=== PATIENT | male | born 1950 | race Caucasian/White ===

== ENCOUNTER 2019-01-13 10:57 | Emergency (ER) | payer MEDICARE, BC ==
[~2019-01-13] VITALS: Ht 167.6 cm; Wt 101.4 kg
[2019-01-13 11:06] VITALS: BP 139/80
[2019-01-13] MEDS ORDERED: LIDOcaine 1% W/epiNEPHrine 1:200,000 10ml vial IJ ONE (11:55)
[2019-01-13] MEDS ORDERED: LIDOcaine 1% w/EPI 1:200,000 injection 10mL vial IM ONE (11:55)
== END 2019-01-13 12:45 | disposition home or self-care (01) ==
LOC: ER 10:57
DX: S61.441A Puncture wound with foreign body of right hand, initial encounter (principal); I10 Essential (primary) hypertension; X58.XXXA Exposure to other specified factors, initial encounter; Y93.89 Activity, other specified; Y92.89 Other specified places as the place of occurrence of the external cause; Y99.9 Unspecified external cause status
CPT/HCPCS: 10120; 99284

== ENCOUNTER 2019-01-18 23:28 | Inpatient (IN) | payer MEDICARE, BC ==
[~2019-01-18] VITALS: Ht 167.6 cm; Wt 100.0 kg
[2019-01-18] MEDS ORDERED: pantoprazole IV 80 MG in normal saline 100ml IV soln 100 ML IV ONE (23:35)
[2019-01-18] MEDS ORDERED: tranexamic acid 100mg/ml inj. IV ONE (23:35)
[2019-01-18] MEDS ORDERED: normal saline 1000ML IV soln IV ONE (23:35)
--- NOTE | 2019-01-18 23:51 | NUR ---
PT CLEANED UP AFTER HOME/EMS BLOODY BM AND NEW BED SHEETS WITH PADS ON BED. PT FEELING NAUSEATED - MD AWARE, PT ORIENTED TO ROOM AND CALL LIGHT, AND UPDATED ON PLAN OF CARE. FAMILY AT BEDSIDE.
[2019-01-18 23:59] LABS: BASOPHILS % (AUTO) 0.4 % (0-1); EOSINOPHILS # (AUTO) 0.2 X10'3 (0-0.9); EOSINOPHILS % (AUTO) 1.7 % (0-6); HEMATOCRIT 27.9 % (42.0-52.0); HEMOGLOBIN 9.4 g/dl (14.0-17.9); LYMPHOCYTES # (AUTO) 2.4 X10'3 (1.1-4.8); LYMPHOCYTES % (AUTO) 26.7 % (21-51); MEAN CORPUSCULAR HEMOGLOBIN 31.3 PG (27.0-31.0); MEAN CORPUSCULAR HGB CONC 33.6 g/dL (33.0-36.5); MEAN CORPUSCULAR VOLUME 93.1 FL (78-98); MEAN PLATELET VOLUME 8.2 FL (7.4-10.4); MONOCYTES # (AUTO) 0.7 X10'3 (0-0.9); MONOCYTES % (AUTO) 8.1 % (2-12); NEUTROPHILS # (AUTO) 5.6 X10'3 (1.8-7.7); NEUTROPHILS % (AUTO) 63.1 % (42-75); PLATELET COUNT 256 X10'3 (140-440); RED BLOOD COUNT 2.99 X10'6 (4.70-6.10); RED CELL DISTRIBUTION WIDTH 14.1 % (11.5-14.5); WHITE BLOOD COUNT 8.8 X10'3 (4.5-11.0)
[2019-01-19] VITALS (17 sets, daily range): BP systolic 99–147; BP diastolic 50–82
[2019-01-19] MEDS ORDERED: ondansetron/PF 4mg/2ml inj IV ONE
[2019-01-19] MEDS: pantoprazole 40MG/NS 100ML BAG 100 ML IV SCH ×5 (00:04→23:19)
[2019-01-19 00:13] LABS: PARTIAL THROMBOPLASTIN TIME 25 SECONDS (22-32)
--- NOTE | 2019-01-19 00:15 | NUR ---
PT AMBULATED [place] [facility] [place] APPROX. 300 ML OF BLOODY STOOL BM. PT REPORTED NO BOUTS OF DIZZINESS OR WEAKNESS. PT BACK IN BED WITH WARM BLANKETS REQUESTED.
[2019-01-19 00:16] LABS: ALANINE AMINOTRANSFERASE 34 U/L (12-78); ALBUMIN 2.5 G/DL (3.4-5.0); ALKALINE PHOSPHATASE 119 IU/L (46-116); ANION GAP 14 (8-16); ASPARTATE AMINO TRANSFERASE 16 U/L (10-37); BILIRUBIN,TOTAL 0.2 MG/DL (0.1-1.0); BLOOD UREA NITROGEN 50 MG/DL (7-18); BUN/CREATININE RATIO 47.6 (5.4-32.0); CALCIUM 7.1 MG/DL (8.5-10.1); CHLORIDE 109 MMOL/L (99-107); CREATININE 1.05 MG/DL (0.60-1.10); GLUCOSE 161 MG/DL (70-104); POTASSIUM 4.4 MMOL/L (3.5-5.1); SODIUM 144 MMOL/L (135-145); TOTAL CARBON DIOXIDE 21.5 MMOL/L (24-32); eGFR 71 ML/MIN
[2019-01-19] MEDS ORDERED: FINA5TAB11 PO (00:46)
[2019-01-19] MEDS ORDERED: SIMV20TA PO (00:46)
[2019-01-19] MEDS ORDERED: LISI10TA4 PO (00:46)
[2019-01-19] MEDS ORDERED: MINO10TA16 PO (00:46)
[2019-01-19] MEDS ORDERED: CHOL10002 PO (00:46)
[2019-01-19] MEDS ORDERED: SAW450CA7 PO (00:46)
[2019-01-19] MEDS ORDERED: ESCI10TA PO (00:46)
[2019-01-19] MEDS ORDERED: VENL225T3 PO (00:46)
[2019-01-19] MEDS ORDERED: ASPI-611 PO (00:46)
[2019-01-19] MEDS ORDERED: OMEG-42 PO (00:46)
[2019-01-19] MEDS ORDERED: TURM538C PO (00:46)
[2019-01-19] MEDS ORDERED: VITE1000C PO (00:46)
[2019-01-19] MEDS ORDERED: BIOT10004 PO (00:46)
[2019-01-19] MEDS ORDERED: FLO0.4C PO (00:46)
[2019-01-19] MEDS ORDERED: MULT-955 PO (00:46)
[2019-01-19] MEDS ORDERED: LORA10TA7 PO (00:46)
[2019-01-19] MEDS ORDERED: FENT1PAT10 TP (00:46)
[2019-01-19] MEDS ORDERED: META800T87 PO (00:46)
[2019-01-19] MEDS ORDERED: OMEG92TA PO (00:46)
[2019-01-19] MEDS: diatr meglu/diatrizoate 30ml oral sol.-(3 dose) bottle PO SCH ×2 (00:48→01:31)
[2019-01-19] MEDS ORDERED: normal saline 1000ML IV soln IVB ONE (01:10)
[2019-01-19] MEDS ORDERED: iohexol 300mg/ml 100ml inj. ONE (01:21)
[2019-01-19] MEDS ORDERED: potassium Cl 20 mEq SR tablet PO PRN ×2 (02:25)
[2019-01-19] MEDS ORDERED: magnesium 2GM in 50ml NS 50 ML IV PRN (02:25)
[2019-01-19] MEDS ORDERED: magnesium 4gm in 100ml NS 100 ML IV PRN (02:25)
[2019-01-19] MEDS ORDERED: acetaminophen 325mg tablet PO PRN (02:25)
[2019-01-19] MEDS ORDERED: potassium CL 10mEq/100ml bag 100 ML IV PRN ×2 (02:25)
[2019-01-19] MEDS ORDERED: magnesium Cl slow-release 64mg tablet PO PRN (02:25)
[2019-01-19] MEDS ORDERED: magnesium hydroxide 30ml (MOM) UD suspension PO PRN (02:25)
[2019-01-19] MEDS ORDERED: mag hydrox/Alum hydrox/simeth 30ml oral suspension PO PRN (02:25)
[2019-01-19] MEDS: ondansetron/PF 4mg/2ml inj IV PRN ×3 (02:41→22:30)
--- NOTE | 2019-01-19 03:12 | NUR ---
PT ASSISTED TO [facility]SC TO HAVE BM. APPROX. 500 ML BLOODY STOOL WITH SOME SLIGHTLY SOLID BLACK BM. PT STATES NO DIZZINESS BUT IS VERY COLD. WARM BLANKETS GIVEN. PT RESTING COMFORTABLY IN BED. FAMILY AT BEDSIDE
[2019-01-19] MEDS ORDERED: morphine 2 MG/ML inj. syringe IV PRN (04:55)
--- NOTE | 2019-01-19 06:40 | NUR ---
ASSISTED PT. TO [facility] [place], HAD APPROXIMATELY 500ML BLOODY STOOL. DENIED ANY DIZZINESS, SOB OR CP.
[2019-01-19 06:41] LABS: BASOPHILS % (AUTO) 0.3 % (0-1); EOSINOPHILS % (AUTO) 0 % (0-6); HEMATOCRIT 31.3 % (42.0-52.0); HEMOGLOBIN 10.5 g/dl (14.0-17.9); LYMPHOCYTES # (AUTO) 1.4 X10'3 (1.1-4.8); MEAN CORPUSCULAR HEMOGLOBIN 31.3 PG (27.0-31.0); MEAN CORPUSCULAR HGB CONC 33.6 g/dL (33.0-36.5); MEAN CORPUSCULAR VOLUME 93.1 FL (78-98); MEAN PLATELET VOLUME 8.2 FL (7.4-10.4); MONOCYTES # (AUTO) 0.5 X10'3 (0-0.9); MONOCYTES % (AUTO) 3.8 % (2-12); NEUTROPHILS % (AUTO) 84.9 % (42-75); PLATELET COUNT 214 X10'3 (140-440); RED BLOOD COUNT 3.36 X10'6 (4.70-6.10); RED CELL DISTRIBUTION WIDTH 14.4 % (11.5-14.5)
[2019-01-19 06:52] LABS: ALBUMIN 2.4 G/DL (3.4-5.0); ANION GAP 10 (8-16); BLOOD UREA NITROGEN 37 MG/DL (7-18); CALCIUM 7.5 MG/DL (8.5-10.1); CHLORIDE 112 MMOL/L (99-107); CREATININE 0.84 MG/DL (0.60-1.10); GLUCOSE 106 MG/DL (70-104); POTASSIUM 4.4 MMOL/L (3.5-5.1); SODIUM 140 MMOL/L (135-145); TOTAL CARBON DIOXIDE 17.7 MMOL/L (24-32); eGFR > 90 ML/MIN
--- NOTE | 2019-01-19 07:10 | NUR ---
PT. TEMPERATURE AT 99.6. PT. GIVEN ICE PACKS AND WET CLOTH.
[2019-01-19] MEDS: K and/or MAG REPLACEMENT MC SCH (07:58)
[2019-01-19] MEDS: tamsulosin 0.4mg capsule PO SCH (08:00)
[2019-01-19] MEDS: finasteride 5mg tablet PO SCH (08:00)
[2019-01-19] MEDS ORDERED: METAXALONE 800 MG PO PRN (08:00)
[2019-01-19] MEDS: ESCITALOPRAM OXALATE 5 MG TABLET PO SCH (08:00)
[2019-01-19] MEDS: venlafaxine XR 75mg capsule (Q24H) PO SCH (08:00)
--- NOTE | 2019-01-19 08:58 | NUR ---
SPOKE TO DR. JONES. HE WOULD CALL ENDOSCOPY TO SCHEDULE A TIME FOR HIM TO GET AN EGD AND I WOULD BE NOTIFIED. NOTIFIED HIM OF TEMPERATURE OF 99.2, AND HIS HGB AND WBC.
--- NOTE | 2019-01-19 10:00 | NUR ---
Patient in room ED 6. I have received report from Roya NEWBY and had the opportunity to ask questions and assume patient care.
[2019-01-19 12:11] LABS: HEMATOCRIT 30.2 % (42.0-52.0); HEMOGLOBIN 10.2 g/dl (14.0-17.9); MEAN CORPUSCULAR HEMOGLOBIN 31.6 PG (27.0-31.0); MEAN CORPUSCULAR HGB CONC 33.8 g/dL (33.0-36.5); MEAN CORPUSCULAR VOLUME 93.3 FL (78-98); MEAN PLATELET VOLUME 8.3 FL (7.4-10.4); PLATELET COUNT 218 X10'3 (140-440); RED BLOOD COUNT 3.24 X10'6 (4.70-6.10); RED CELL DISTRIBUTION WIDTH 14.3 % (11.5-14.5); WHITE BLOOD COUNT 9.1 X10'3 (4.5-11.0)
[2019-01-19] MEDS ORDERED: fentaNYL/PF 50MCG/1 ML 2ML syringe ONE (12:54)
[2019-01-19] MEDS ORDERED: MIDAZolam 5mg/5ml vial ONE (12:54)
[2019-01-19] MEDS ORDERED: LIDOcaine Viscous 15ml cup ONE (12:54)
[2019-01-19] MEDS ORDERED: PEG 3350/Na sulf,bicarb,Cl/KCl oral sol 4 liter bottle PO ONE (14:40)
--- NOTE | 2019-01-19 18:07 | NUR ---
Problems reprioritized. Patient report given, questions answered & plan of care reviewed with Brianna NEWBY.
--- NOTE | 2019-01-19 18:35 | NUR ---
Patient in room ORTHO 4013. I have received report from ODIN Pappas and had the opportunity to ask questions and assume patient care.
[2019-01-19] MEDS: morphine 2 MG/ML inj. syringe IV PRN ×2 (18:44→22:30)
[2019-01-19 19:13] LABS: HEMATOCRIT 26.3 % (42.0-52.0); HEMOGLOBIN 8.8 g/dl (14.0-17.9); MEAN CORPUSCULAR HEMOGLOBIN 31.3 PG (27.0-31.0); MEAN CORPUSCULAR HGB CONC 33.5 g/dL (33.0-36.5); MEAN CORPUSCULAR VOLUME 93.5 FL (78-98); PLATELET COUNT 227 X10'3 (140-440); RED BLOOD COUNT 2.81 X10'6 (4.70-6.10); RED CELL DISTRIBUTION WIDTH 14.7 % (11.5-14.5); WHITE BLOOD COUNT 11.5 X10'3 (4.5-11.0)
[2019-01-20] VITALS (15 sets, daily range): BP systolic 100–141; BP diastolic 50–72
[2019-01-20 02:01] LABS: HEMOGLOBIN 7.4 g/dl (14.0-17.9); MEAN CORPUSCULAR HEMOGLOBIN 31.9 PG (27.0-31.0); MEAN CORPUSCULAR HGB CONC 34.6 g/dL (33.0-36.5); MEAN CORPUSCULAR VOLUME 92.3 FL (78-98); MEAN PLATELET VOLUME 9.1 FL (7.4-10.4); PLATELET COUNT 196 X10'3 (140-440); RED BLOOD COUNT 2.31 X10'6 (4.70-6.10); RED CELL DISTRIBUTION WIDTH 14.6 % (11.5-14.5); WHITE BLOOD COUNT 8.9 X10'3 (4.5-11.0)
[2019-01-20 02:04] LABS: HEMATOCRIT 21.4 % (42.0-52.0)
[2019-01-20] MEDS: morphine 2 MG/ML inj. syringe IV PRN ×5 (02:41→22:48)
[2019-01-20] MEDS: pantoprazole 40MG/NS 100ML BAG 100 ML IV SCH ×3 (04:23→22:49)
--- NOTE | 2019-01-20 06:15 | NUR ---
Problems reprioritized. Patient report given, questions answered & plan of care reviewed with ODIN Pappas.
--- NOTE | 2019-01-20 06:49 | NUR ---
Patient in room ORTHO 4013. I have received report from Brianna NEWBY and had the opportunity to ask questions and assume patient care.
[2019-01-20 07:13] LABS: BASOPHILS # (AUTO) 0.1 X10'3 (0-0.2); BASOPHILS % (AUTO) 0.6 % (0-1); EOSINOPHILS # (AUTO) 0.3 X10'3 (0-0.9); EOSINOPHILS % (AUTO) 3.1 % (0-6); HEMOGLOBIN 7.5 g/dl (14.0-17.9); LYMPHOCYTES % (AUTO) 32.1 % (21-51); MEAN CORPUSCULAR HGB CONC 34.4 g/dL (33.0-36.5); MEAN CORPUSCULAR VOLUME 93.1 FL (78-98); MEAN PLATELET VOLUME 8.4 FL (7.4-10.4); MONOCYTES # (AUTO) 0.7 X10'3 (0-0.9); MONOCYTES % (AUTO) 7.2 % (2-12); NEUTROPHILS # (AUTO) 5.4 X10'3 (1.8-7.7); PLATELET COUNT 184 X10'3 (140-440); RED BLOOD COUNT 2.36 X10'6 (4.70-6.10); RED CELL DISTRIBUTION WIDTH 14.8 % (11.5-14.5); WHITE BLOOD COUNT 9.5 X10'3 (4.5-11.0)
[2019-01-20 07:20] LABS: HEMATOCRIT 21.9 % (42.0-52.0)
--- NOTE | 2019-01-20 07:26 | NUR ---
Mian [id number] Re: Isra. Critical lab HCT 21.9
[2019-01-20 07:39] LABS: ALBUMIN 2.6 G/DL (3.4-5.0); ANION GAP 12 (8-16); BLOOD UREA NITROGEN 23 MG/DL (7-18); CALCIUM 7.9 MG/DL (8.5-10.1); CHLORIDE 110 MMOL/L (99-107); GLUCOSE 101 MG/DL (70-104); MAGNESIUM 1.8 MG/DL (1.5-2.4); POTASSIUM 3.9 MMOL/L (3.5-5.1); SODIUM 145 MMOL/L (135-145); TOTAL CARBON DIOXIDE 23.4 MMOL/L (24-32); eGFR 75 ML/MIN
[2019-01-20] MEDS: ondansetron/PF 4mg/2ml inj IV PRN ×2 (07:50→18:52)
[2019-01-20] MEDS: venlafaxine XR 75mg capsule (Q24H) PO SCH (08:00)
[2019-01-20] MEDS: finasteride 5mg tablet PO SCH (08:00)
[2019-01-20] MEDS: K and/or MAG REPLACEMENT MC SCH (08:00)
[2019-01-20] MEDS ORDERED: FLU VACC QS 2019-20 (6 MOS UP) 60 MCG/0.5 ML VIAL IMVAC ONE (08:00)
[2019-01-20] MEDS: ESCITALOPRAM OXALATE 5 MG TABLET PO SCH (08:00)
[2019-01-20] MEDS: tamsulosin 0.4mg capsule PO SCH (08:00)
[2019-01-20] MEDS: minoxidil 2.5mg tablet PO SCH (08:00)
[2019-01-20] MEDS ORDERED: MIDAZolam 5mg/5ml vial ONE (09:56)
[2019-01-20] MEDS ORDERED: fentaNYL/PF 50MCG/1 ML 2ML syringe ONE (09:56)
[2019-01-20] MEDS: sucralfate 1 gm tablet PO SCH ×2 (16:20→20:52)
[2019-01-20 17:55] LABS: MEAN CORPUSCULAR HEMOGLOBIN 32.1 PG (27.0-31.0); MEAN CORPUSCULAR HGB CONC 34.8 g/dL (33.0-36.5); MEAN CORPUSCULAR VOLUME 92.4 FL (78-98); MEAN PLATELET VOLUME 7.9 FL (7.4-10.4); PLATELET COUNT 165 X10'3 (140-440); RED BLOOD COUNT 1.89 X10'6 (4.70-6.10); RED CELL DISTRIBUTION WIDTH 14.1 % (11.5-14.5); WHITE BLOOD COUNT 9.2 X10'3 (4.5-11.0)
[2019-01-20 17:59] LABS: HEMATOCRIT 17.4 % (42.0-52.0); HEMOGLOBIN 6.1 g/dl (14.0-17.9)
--- NOTE | 2019-01-20 18:07 | NUR ---
Mian 1959 Re: Thiago Dhaliwal. Critical HH (6.1)(17.4) do you want 1 or 2 units replaced?
--- NOTE | 2019-01-20 18:08 | NUR ---
Problems reprioritized. Patient report given, questions answered & plan of care reviewed with Brianna NEWBY.
--- NOTE | 2019-01-20 18:15 | NUR ---
Patient in room ORTHO 4013. I have received report from ODIN Pappas and had the opportunity to ask questions and assume patient care.
[2019-01-21 00:50] LABS: HEMOGLOBIN 7.6 g/dl (14.0-17.9); MEAN CORPUSCULAR HEMOGLOBIN 32.2 PG (27.0-31.0); MEAN CORPUSCULAR HGB CONC 34.9 g/dL (33.0-36.5); MEAN CORPUSCULAR VOLUME 92.3 FL (78-98); MEAN PLATELET VOLUME 8.1 FL (7.4-10.4); PLATELET COUNT 150 X10'3 (140-440); RED BLOOD COUNT 2.36 X10'6 (4.70-6.10); RED CELL DISTRIBUTION WIDTH 14.3 % (11.5-14.5); WHITE BLOOD COUNT 8.4 X10'3 (4.5-11.0)
[2019-01-21 00:54] LABS: HEMATOCRIT 21.8 % (42.0-52.0)
[2019-01-21] MEDS: morphine 2 MG/ML inj. syringe IV PRN (02:29)
[2019-01-21 02:37] VITALS: BP 128/72
[2019-01-21] MEDS: pantoprazole 40MG/NS 100ML BAG 100 ML IV SCH ×2 (03:39→09:20)
[2019-01-21 06:00] VITALS: BP 130/77
[2019-01-21] MEDS: HYDROcodone/acetaminophen 5mg/325mg tablet PO PRN ×2 (06:03→09:26)
[2019-01-21 06:28] LABS: ALBUMIN 2.6 G/DL (3.4-5.0); ANION GAP 7 (8-16); BLOOD UREA NITROGEN 9 MG/DL (7-18); BUN/CREATININE RATIO 10.2 (5.4-32.0); CALCIUM 7.5 MG/DL (8.5-10.1); CHLORIDE 111 MMOL/L (99-107); CREATININE 0.88 MG/DL (0.60-1.10); GLUCOSE 106 MG/DL (70-104); MAGNESIUM 1.6 MG/DL (1.5-2.4); POTASSIUM 3.8 MMOL/L (3.5-5.1); SODIUM 143 MMOL/L (135-145); TOTAL CARBON DIOXIDE 25.5 MMOL/L (24-32); eGFR 87 ML/MIN
[2019-01-21 06:36] LABS: BASOPHILS # (AUTO) 0.1 X10'3 (0-0.2); BASOPHILS % (AUTO) 0.7 % (0-1); EOSINOPHILS # (AUTO) 0.4 X10'3 (0-0.9); EOSINOPHILS % (AUTO) 5.1 % (0-6); HEMATOCRIT 22.2 % (42.0-52.0); HEMOGLOBIN 7.9 g/dl (14.0-17.9); LYMPHOCYTES # (AUTO) 2.3 X10'3 (1.1-4.8); LYMPHOCYTES % (AUTO) 27.8 % (21-51); MEAN CORPUSCULAR HEMOGLOBIN 32.6 PG (27.0-31.0); MEAN CORPUSCULAR HGB CONC 35.6 g/dL (33.0-36.5); MEAN CORPUSCULAR VOLUME 91.6 FL (78-98); MEAN PLATELET VOLUME 8.3 FL (7.4-10.4); MONOCYTES # (AUTO) 0.7 X10'3 (0-0.9); MONOCYTES % (AUTO) 8.4 % (2-12); NEUTROPHILS # (AUTO) 4.9 X10'3 (1.8-7.7); PLATELET COUNT 156 X10'3 (140-440); RED BLOOD COUNT 2.43 X10'6 (4.70-6.10); RED CELL DISTRIBUTION WIDTH 13.9 % (11.5-14.5); WHITE BLOOD COUNT 8.4 X10'3 (4.5-11.0)
--- NOTE | 2019-01-21 06:36 | NUR ---
Patient in room ORTHO 4013. I have received report from Brianna NEWBY and had the opportunity to ask questions and assume patient care.
--- NOTE | 2019-01-21 06:37 | NUR ---
Problems reprioritized. Patient report given, questions answered & plan of care reviewed with ODIN Pappas.
[2019-01-21] MEDS: finasteride 5mg tablet PO SCH (07:31)
[2019-01-21] MEDS: sucralfate 1 gm tablet PO SCH ×4 (07:31→20:08)
[2019-01-21] MEDS: venlafaxine XR 75mg capsule (Q24H) PO SCH (07:31)
[2019-01-21] MEDS: tamsulosin 0.4mg capsule PO SCH (07:31)
[2019-01-21] MEDS: ESCITALOPRAM OXALATE 5 MG TABLET PO SCH (07:32)
[2019-01-21] MEDS: minoxidil 2.5mg tablet PO SCH (07:32)
[2019-01-21] MEDS: K and/or MAG REPLACEMENT MC SCH (07:32)
[2019-01-21] MEDS: ondansetron/PF 4mg/2ml inj IV PRN (08:14)
[2019-01-21 10:00] VITALS: BP 128/69
[2019-01-21] MEDS ORDERED: furosemide 20 MG/2 ML vial IV ONE (10:05)
[2019-01-21] MEDS ORDERED: FENT1PAT7 TOP (11:18)
[2019-01-21] MEDS ORDERED: fentaNYL 25MCG/hour patch.TD72 TD SCH (11:20)
[2019-01-21 12:23] LABS: HEMATOCRIT 23.9 % (42.0-52.0); HEMOGLOBIN 8.4 g/dl (14.0-17.9); MEAN CORPUSCULAR HEMOGLOBIN 32.3 PG (27.0-31.0); MEAN CORPUSCULAR HGB CONC 35.1 g/dL (33.0-36.5); MEAN CORPUSCULAR VOLUME 91.9 FL (78-98); MEAN PLATELET VOLUME 7.9 FL (7.4-10.4); PLATELET COUNT 164 X10'3 (140-440); RED BLOOD COUNT 2.61 X10'6 (4.70-6.10); RED CELL DISTRIBUTION WIDTH 14.2 % (11.5-14.5); WHITE BLOOD COUNT 7.7 X10'3 (4.5-11.0)
--- NOTE | 2019-01-21 13:38 | NUR ---
Mian 5199 Re: Isra. Pharmacy does not have home med (Metaxalone). Pt says he does not need med. Can we DC med?
[2019-01-21 18:17] LABS: MEAN CORPUSCULAR HEMOGLOBIN 32.2 PG (27.0-31.0); MEAN CORPUSCULAR HGB CONC 34.7 g/dL (33.0-36.5); MEAN CORPUSCULAR VOLUME 92.7 FL (78-98); MEAN PLATELET VOLUME 8.1 FL (7.4-10.4); PLATELET COUNT 154 X10'3 (140-440); RED BLOOD COUNT 2.48 X10'6 (4.70-6.10); RED CELL DISTRIBUTION WIDTH 14.3 % (11.5-14.5); WHITE BLOOD COUNT 7.5 X10'3 (4.5-11.0)
--- NOTE | 2019-01-21 18:19 | NUR ---
Problems reprioritized. Patient report given, questions answered & plan of care reviewed with Brianna NEWBY.
--- NOTE | 2019-01-21 18:30 | NUR ---
Patient in room ORTHO 4013. I have received report from ODIN Pappas and had the opportunity to ask questions and assume patient care.
[2019-01-21] MEDS ORDERED: pantoprazole 40mg Tablet.DR PO SCH (20:00)
[2019-01-21] MEDS: pantoprazole 40 MG vial IV SCH (20:13)
[2019-01-21 22:00] VITALS: BP 125/74
[2019-01-22] VITALS (8 sets, daily range): BP systolic 106–132; BP diastolic 58–80
[2019-01-22 00:42] LABS: HEMOGLOBIN 7.4 g/dl (14.0-17.9); MEAN CORPUSCULAR HEMOGLOBIN 32.5 PG (27.0-31.0); MEAN CORPUSCULAR HGB CONC 35.1 g/dL (33.0-36.5); MEAN CORPUSCULAR VOLUME 92.5 FL (78-98); PLATELET COUNT 159 X10'3 (140-440); RED BLOOD COUNT 2.29 X10'6 (4.70-6.10); WHITE BLOOD COUNT 7.4 X10'3 (4.5-11.0)
[2019-01-22 00:49] LABS: HEMATOCRIT 21.2 % (42.0-52.0)
[2019-01-22] MEDS: acetaminophen 325mg tablet PO PRN ×2 (02:14→07:27)
[2019-01-22 06:17] LABS: ALBUMIN 2.5 G/DL (3.4-5.0); ANION GAP 4 (8-16); BLOOD UREA NITROGEN 8 MG/DL (7-18); BUN/CREATININE RATIO 9.2 (5.4-32.0); CALCIUM 8.1 MG/DL (8.5-10.1); CHLORIDE 106 MMOL/L (99-107); CREATININE 0.87 MG/DL (0.60-1.10); GLUCOSE 96 MG/DL (70-104); MAGNESIUM 1.7 MG/DL (1.5-2.4); POTASSIUM 3.7 MMOL/L (3.5-5.1); SODIUM 140 MMOL/L (135-145); TOTAL CARBON DIOXIDE 30.1 MMOL/L (24-32); eGFR 88 ML/MIN
--- NOTE | 2019-01-22 06:20 | NUR ---
Patient in room ORTHO 4013. I have received report from and had the opportunity to ask questions and assume patient care Rayna. NEWBY.
--- NOTE | 2019-01-22 06:43 | NUR ---
Problems reprioritized. Patient report given, questions answered & plan of care reviewed with ODIN Church.
[2019-01-22 06:45] LABS: BASOPHILS % (AUTO) 0.6 % (0-1); EOSINOPHILS # (AUTO) 0.5 X10'3 (0-0.9); EOSINOPHILS % (AUTO) 6.9 % (0-6); HEMOGLOBIN 7.7 g/dl (14.0-17.9); LYMPHOCYTES % (AUTO) 28.9 % (21-51); MEAN CORPUSCULAR HEMOGLOBIN 32.4 PG (27.0-31.0); MEAN CORPUSCULAR HGB CONC 35.1 g/dL (33.0-36.5); MEAN CORPUSCULAR VOLUME 92.4 FL (78-98); MEAN PLATELET VOLUME 8.2 FL (7.4-10.4); MONOCYTES # (AUTO) 0.4 X10'3 (0-0.9); MONOCYTES % (AUTO) 6.5 % (2-12); NEUTROPHILS # (AUTO) 3.9 X10'3 (1.8-7.7); NEUTROPHILS % (AUTO) 57.1 % (42-75); PLATELET COUNT 167 X10'3 (140-440); RED BLOOD COUNT 2.36 X10'6 (4.70-6.10); RED CELL DISTRIBUTION WIDTH 14.3 % (11.5-14.5); WHITE BLOOD COUNT 6.8 X10'3 (4.5-11.0)
[2019-01-22 06:51] LABS: HEMATOCRIT 21.8 % (42.0-52.0)
--- NOTE | 2019-01-22 07:13 | NUR ---
Dr Riddle: PAGER ID: [phone] MESSAGE: #[id number] Thiago Dhaliwal: CRITICAL: HCT 21.8 Hgb: 7.7
--- NOTE | 2019-01-22 07:15 | NUR ---
Dr Riddle: PAGER ID: [phone] MESSAGE: #[id number] Thiago Dhaliwal: CRITICAL Hct: 21.8 Hgb: 7.7 Thank you, Lynnette [phone]
[2019-01-22] MEDS: sucralfate 1 gm tablet PO SCH ×4 (07:26→21:22)
[2019-01-22] MEDS: K and/or MAG REPLACEMENT MC SCH (08:00)
[2019-01-22] MEDS: venlafaxine XR 75mg capsule (Q24H) PO SCH (08:35)
[2019-01-22] MEDS: tamsulosin 0.4mg capsule PO SCH (08:35)
[2019-01-22] MEDS: finasteride 5mg tablet PO SCH (08:35)
[2019-01-22] MEDS: minoxidil 2.5mg tablet PO SCH (08:36)
[2019-01-22] MEDS: ESCITALOPRAM OXALATE 5 MG TABLET PO SCH (08:36)
[2019-01-22] MEDS: pantoprazole 40 MG vial IV SCH ×2 (08:37→21:22)
[2019-01-22] MEDS: ondansetron/PF 4mg/2ml inj IV PRN (14:39)
--- NOTE | 2019-01-22 18:47 | NUR ---
Problems reprioritized. Patient report given, questions answered & plan of care reviewed with ODIN Orozco.
[2019-01-22 19:36] LABS: BASOPHILS # (AUTO) 0.1 X10'3 (0-0.2); BASOPHILS % (AUTO) 0.7 % (0-1); EOSINOPHILS # (AUTO) 0.4 X10'3 (0-0.9); EOSINOPHILS % (AUTO) 4.7 % (0-6); HEMATOCRIT 24.3 % (42.0-52.0); HEMOGLOBIN 8.5 g/dl (14.0-17.9); LYMPHOCYTES # (AUTO) 1.7 X10'3 (1.1-4.8); LYMPHOCYTES % (AUTO) 22.6 % (21-51); MEAN CORPUSCULAR HEMOGLOBIN 32.3 PG (27.0-31.0); MEAN CORPUSCULAR VOLUME 92.4 FL (78-98); MEAN PLATELET VOLUME 7.8 FL (7.4-10.4); MONOCYTES # (AUTO) 0.5 X10'3 (0-0.9); MONOCYTES % (AUTO) 6.9 % (2-12); NEUTROPHILS # (AUTO) 4.9 X10'3 (1.8-7.7); NEUTROPHILS % (AUTO) 65.1 % (42-75); PLATELET COUNT 204 X10'3 (140-440); RED BLOOD COUNT 2.63 X10'6 (4.70-6.10); RED CELL DISTRIBUTION WIDTH 14.3 % (11.5-14.5); WHITE BLOOD COUNT 7.5 X10'3 (4.5-11.0)
[2019-01-23 06:00] VITALS: BP 119/63
--- NOTE | 2019-01-23 06:26 | NUR ---
Report given to josie Church.
[2019-01-23 06:29] LABS: BASOPHILS % (AUTO) 0.7 % (0-1); EOSINOPHILS # (AUTO) 0.4 X10'3 (0-0.9); EOSINOPHILS % (AUTO) 6.3 % (0-6); HEMATOCRIT 26.1 % (42.0-52.0); HEMOGLOBIN 9.1 g/dl (14.0-17.9); LYMPHOCYTES # (AUTO) 1.5 X10'3 (1.1-4.8); LYMPHOCYTES % (AUTO) 22.2 % (21-51); MEAN CORPUSCULAR HEMOGLOBIN 32.2 PG (27.0-31.0); MEAN CORPUSCULAR HGB CONC 34.7 g/dL (33.0-36.5); MEAN PLATELET VOLUME 7.8 FL (7.4-10.4); MONOCYTES # (AUTO) 0.5 X10'3 (0-0.9); MONOCYTES % (AUTO) 7.4 % (2-12); NEUTROPHILS # (AUTO) 4.2 X10'3 (1.8-7.7); NEUTROPHILS % (AUTO) 63.4 % (42-75); PLATELET COUNT 223 X10'3 (140-440); RED BLOOD COUNT 2.81 X10'6 (4.70-6.10); RED CELL DISTRIBUTION WIDTH 14.6 % (11.5-14.5); WHITE BLOOD COUNT 6.6 X10'3 (4.5-11.0)
[2019-01-23 06:44] LABS: ALBUMIN 2.7 G/DL (3.4-5.0); ANION GAP 6 (8-16); BLOOD UREA NITROGEN 7 MG/DL (7-18); CALCIUM 8.6 MG/DL (8.5-10.1); CHLORIDE 108 MMOL/L (99-107); CREATININE 0.87 MG/DL (0.60-1.10); GLUCOSE 96 MG/DL (70-104); MAGNESIUM 2.2 MG/DL (1.5-2.4); POTASSIUM 4.1 MMOL/L (3.5-5.1); SODIUM 143 MMOL/L (135-145); TOTAL CARBON DIOXIDE 29.1 MMOL/L (24-32); eGFR 88 ML/MIN
[2019-01-23] MEDS: tamsulosin 0.4mg capsule PO SCH (08:01)
[2019-01-23] MEDS: minoxidil 2.5mg tablet PO SCH (08:02)
[2019-01-23] MEDS: finasteride 5mg tablet PO SCH (08:04)
[2019-01-23] MEDS: sucralfate 1 gm tablet PO SCH (08:05)
[2019-01-23] MEDS: venlafaxine XR 75mg capsule (Q24H) PO SCH (08:05)
[2019-01-23] MEDS: ESCITALOPRAM OXALATE 5 MG TABLET PO SCH (08:07)
[2019-01-23] MEDS: pantoprazole 40 MG vial IV SCH (08:13)
[2019-01-23 10:00] VITALS: BP 106/64
[2019-01-23 11:00] VITALS: BP 122/71
--- NOTE | 2019-01-23 12:17 | NUR ---
Student Medication Administration: For this medication-pass time frame [id number], all medications were reviewed,administered and documented per hospital policy by Leonel Espinoza. Student documentation:I have reviewed and agree with all interventions, assessments performed and documented by Leonel Espinoza.
[2019-01-23 15:38] LABS: HEMATOCRIT 27.4 % (42.0-52.0); HEMOGLOBIN 9.6 g/dl (14.0-17.9); MEAN CORPUSCULAR HEMOGLOBIN 32.6 PG (27.0-31.0); MEAN CORPUSCULAR HGB CONC 35.2 g/dL (33.0-36.5); MEAN CORPUSCULAR VOLUME 92.8 FL (78-98); MEAN PLATELET VOLUME 8.2 FL (7.4-10.4); PLATELET COUNT 260 X10'3 (140-440); RED BLOOD COUNT 2.95 X10'6 (4.70-6.10); RED CELL DISTRIBUTION WIDTH 14.6 % (11.5-14.5); WHITE BLOOD COUNT 7.4 X10'3 (4.5-11.0)
[2019-01-23] MEDS ORDERED: SUCR1TAB34 PO (16:03)
[2019-01-23] MEDS ORDERED: PANT40TA4 PO (16:03)
--- NOTE | 2019-01-23 18:04 | NUR ---
DISCHARGE: VSS, RR even/unlabored. Denies CP, SOB, resp distress, N/V, vertigo at this time. 1 episode of increased heart rate in late morning-190+ BPM. Resolved, no further incidences the rest of shift. All necessary DC documents signed, recap copies given to pt. H/H elevated post transfusion, NM GI scan negative. Called [facility] [place] [facility] meds. All personal effects gathers and sent home w/pt. Pt escorted RONDA via WC by [facility] staff & spouse. Pt transferred safely into personal vehicle. Pt thanked [facility] staff for his care.
[2019-01-23] MEDS ORDERED: FERR325T28 PO (18:13)
== END 2019-01-23 17:55 | disposition home health service (06) | DRG 378 ==
LOC: ER 23:28 → ED HOLD 01-19 02:52 → ORTHO 4S 01-19 10:17
PROVIDERS: ADMIT Hospitalist; ATTEND Family Medicine
PROC: 0DJ08ZZ Inspection of Upper Intestinal Tract, Via Natural or Artificial Opening Endoscopic (ICD-10-PCS; principal; 2019-01-19)
PROC: 30233N1 Transfusion of Nonautologous Red Blood Cells into Peripheral Vein, Percutaneous Approach (ICD-10-PCS; 2019-01-19)
PROC: BW211ZZ Computerized Tomography (CT Scan) of Abdomen and Pelvis using Low Osmolar Contrast (ICD-10-PCS; 2019-01-19)
PROC: 0DJD8ZZ Inspection of Lower Intestinal Tract, Via Natural or Artificial Opening Endoscopic (ICD-10-PCS; 2019-01-20)
PROC: 30233N1 Transfusion of Nonautologous Red Blood Cells into Peripheral Vein, Percutaneous Approach (ICD-10-PCS; 2019-01-20)
PROC: 30233N1 Transfusion of Nonautologous Red Blood Cells into Peripheral Vein, Percutaneous Approach (ICD-10-PCS; 2019-01-22)
PROC: CD171ZZ Planar Nuclear Medicine Imaging of Gastrointestinal Tract using Technetium 99m (Tc-99m) (ICD-10-PCS; 2019-01-23)
DX: K92.2 Gastrointestinal hemorrhage, unspecified (principal); D62 Acute posthemorrhagic anemia; E78.5 Hyperlipidemia, unspecified; F32.9 Major depressive disorder, single episode, unspecified; G89.4 Chronic pain syndrome; I10 Essential (primary) hypertension; K64.8 Other hemorrhoids; F41.9 Anxiety disorder, unspecified; I95.9 Hypotension, unspecified; N28.1 Cyst of kidney, acquired; N40.0 Benign prostatic hyperplasia without lower urinary tract symptoms; Z98.84 Bariatric surgery status; Z79.899 Other long term (current) drug therapy; Z79.82 Long term (current) use of aspirin
CPT/HCPCS: 36415; 43235; 45378; 71045; 74177; 78278; 80048; 80053; 83735; 85025; 85027; 85610; 85730; 86885; 86900; 86901; 86920; 87081; 93005; 96361; 96374; 96375; 99152; 99291; A4620; A9560; C9113; G0378; J1940; J2250; J2270; J2405; J3010; J7040; P9016; Q2037; Q9963; Q9967

== ENCOUNTER 2019-12-05 06:40 | Day surgery (SDC) | payer MEDICARE, BC ==
[2019-11-29 12:12] LABS: BASOPHILS % (AUTO) 0.6 % (0-1); EOSINOPHILS # (AUTO) 0.2 X10'3 (0-0.9); EOSINOPHILS % (AUTO) 3.8 % (0-6); LYMPHOCYTES # (AUTO) 1.8 X10'3 (1.1-4.8); LYMPHOCYTES % (AUTO) 28.8 % (21-51); MEAN CORPUSCULAR HEMOGLOBIN 30.6 PG (27.0-31.0); MEAN CORPUSCULAR VOLUME 92.7 FL (78-98); MEAN PLATELET VOLUME 8.1 FL (7.4-10.4); MONOCYTES # (AUTO) 0.5 X10'3 (0-0.9); MONOCYTES % (AUTO) 8.5 % (2-12); NEUTROPHILS # (AUTO) 3.7 X10'3 (1.8-7.7); NEUTROPHILS % (AUTO) 58.3 % (42-75); PRE OP HEMATOCRIT 42.9 % (42.0-52.0); PRE OP HEMOGLOBIN 14.2 g/dL (14.0-17.9); PRE OP PLATELET COUNT 269 X10'3 (140-440); RED BLOOD COUNT 4.63 X10'6 (4.70-6.10); RED CELL DISTRIBUTION WIDTH 14.4 % (11.5-14.5)
[2019-11-29 12:27] LABS: ALBUMIN 3.4 G/DL (3.4-5.0); ALBUMIN/GLOBULIN RATIO 0.9 (1.1-1.5); ALKALINE PHOSPHATASE 153 IU/L (46-116); BLOOD UREA NITROGEN 20 MG/DL (7-18); BUN/CREATININE RATIO 19.8 (5.4-32.0); CALCIUM 8.6 MG/DL (8.5-10.1); CHLORIDE 102 MMOL/L (99-107); CREATININE 1.01 MG/DL (0.60-1.10); PRE OP ALT 37 U/L (30-65); PRE OP ANION GAP 8 (8-16); PRE OP AST 32 U/L (10-37); PRE OP BILIRUB, TOTAL 0.4 MG/DL (0.0-1.0); PRE OP GLUCOSE 91 MG/DL (70-104); PRE OP SODIUM 137 MMOL/L (135-145); TOTAL CARBON DIOXIDE 27.2 MMOL/L (24-32); TOTAL PROTEIN 7.2 G/DL (6.4-8.2); eGFR 74 ML/MIN
[~2019-12-05] VITALS: Ht 165.1 cm; Wt 100.5 kg
[2019-12-05] VITALS (12 sets, daily range): BP systolic 113–151; BP diastolic 73–97
[~2019-12-05 06:40] MED LIST: AMLO2.5T2 PO; ESCI10TA PO; FENT1PAT7 TOP; FINA5TAB11 PO; FLO0.4C PO; LISI10TA4 PO; META-110 PO; PANT40TA54 PO; SIMV20TA PO; VENL225T3 PO; cefazolin/dext.iso 2gm/50ml 50 ML IV ONE; famotidine 20mg tablet PO ONE; ringers solution, lacted 1,000 ML IV SCH
[2019-12-05] MEDS ORDERED: LIDOcaine 1% 30ml preserv. free vial ONE (06:42)
[2019-12-05] MEDS ORDERED: BUPIVAcaine/PF 2.5 mg/ml (0.25%) 30ml vial ONE (06:42)
[2019-12-05] MEDS ORDERED: propofol inj 20 ML IV ONE (07:13)
[2019-12-05] MEDS ORDERED: midazolam 2 mg/2 ml injection ONE (07:13)
[2019-12-05] MEDS ORDERED: rocuronium 10mg/ml inj IV ONE (07:13)
[2019-12-05] MEDS ORDERED: fentaNYL /PF 50mcg/ml 5ml ampule ONE (07:13)
[2019-12-05] MEDS ORDERED: LIDOcaine 2% (20mg/ml) 5ml vial ONE (07:13)
[2019-12-05] MEDS ORDERED: sevoflurane 250ml liquid IH ONE (07:32)
[2019-12-05] MEDS ORDERED: neostigmine methylsulfate 1 MG/ML 10ml vial ONE (07:32)
[2019-12-05] MEDS ORDERED: glycopyrrolate 0.2mg/ml inj ONE (07:32)
[2019-12-05] MEDS ORDERED: ondansetron/PF 4mg/2ml inj ONE (07:51)
[2019-12-05] MEDS ORDERED: dexamethasone sod phosphate 4mg/ml inj. ONE (07:51)
[2019-12-05] MEDS ORDERED: ringers solution, lacted 1,000 ML IV SCH (08:08)
[2019-12-05] MEDS ORDERED: proCHLORperazine 10 MG/2 ml inj IV PRN (08:10)
[2019-12-05] MEDS ORDERED: ondansetron/PF 4mg/2ml inj IV PRN (08:10)
[2019-12-05] MEDS ORDERED: morphine 4 MG/ML inj SYRINge IV PRN (08:10)
[2019-12-05] MEDS ORDERED: meperidine/PF 25mg/ml syringe IV PRN ×3 (08:10)
[2019-12-05] MEDS ORDERED: morphine 2 MG/ML inj. syringe IV PRN (08:10)
[2019-12-05] MEDS ORDERED: acetaminophen 1,000mg/100ml IV 100 ML IV ONE (08:13)
[2019-12-05] MEDS ORDERED: HYDROcodone/acetaminophen 5mg/325mg tablet PO PRN (09:25)
--- NOTE | 2019-12-05 09:25 | NUR ---
Received from OR via ANT, accompanied by Anesthesiologist DR TRACY and report given by Anesthesiologist. PT DROWSY, DENIES PAIN, ABDOMEN W/3 LAP SITES W/BANDAIDS CDI. Addendum: 12/05/19 at 0951 by Di Law RN Amended: Links added.
[2019-12-05] MEDS ORDERED: benzocaine/menthol oral lozeng 1 EACH BOX MM PRN (09:35)
--- NOTE | 2019-12-05 12:48 | NUR ---
PT COMFORTABLE, AMBULATING SAFELY IN PACU, ATTEMPTING TO VOID, BLADDER SCANNED FOR 184 ML URINE, DR DE LA O AWARE, PT REQUESTING MORE TIME TO BE ABLE TO VOID BEFORE GETTING A CATHETER. Addendum: 12/05/19 at 1250 by Di Law RN Amended: Links added.
[2019-12-05] MEDS ORDERED: LIDOcaine 2% 10ml TOPICAL JELLY (Urojet) MM ONE (13:25)
--- NOTE | 2019-12-05 13:55 | NUR ---
PT STRAIGHT CATHED FOR 480 ML OF URINE W/ASEPTIC TECHNIQUE, TOLERATED WELL, PT INSTRUCTED TO RETURN TO THE E.D. IF UNABLE TO VOID OR EMPTY HIS BLADDER WITHIN 6 - 8 HOURS. D/C INSTRUCTIONS GIVEN AND GONE OVER W/PT WHO VERBALIZED UNDERSTANDING. PT D/CD TO HOME VIA W/C TO PRIVATE W/O INCIDENT. Addendum: 12/05/19 at 1426 by Di Law RN Amended: Links added.
== END 2019-12-05 13:55 | disposition home or self-care (01) ==
LOC: PAS 06:40
PROVIDERS: ATTEND Surgery
DX: K40.91 Unilateral inguinal hernia, without obstruction or gangrene, recurrent (principal); G47.30 Sleep apnea, unspecified; F41.9 Anxiety disorder, unspecified; G89.29 Other chronic pain; F32.9 Major depressive disorder, single episode, unspecified; I10 Essential (primary) hypertension; E66.9 Obesity, unspecified; Z68.36 Body mass index [BMI] 36.0-36.9, adult; Z20.828 Contact with and (suspected) exposure to other viral communicable diseases; Z79.899 Other long term (current) drug therapy; Z98.890 Other specified postprocedural states; Z86.73 Personal history of transient ischemic attack (TIA), and cerebral infarction without residual deficits; Z87.442 Personal history of urinary calculi
CPT/HCPCS: 36415; 49651; 80053; 82948; 85025; 87635; 93005; C1781; J0131; J1100; J2001; J2175; J2250; J2405; J2704; J2710; J3010; J3490; J7120; A4215; A4618

== ENCOUNTER 2021-02-26 10:17 | Emergency (ER) | payer MEDICARE, BC ==
[~2021-02-26] VITALS: Ht 165.1 cm; Wt 102.7 kg
[~2021-02-26 10:17] MED LIST changes: +LISI10TA27 PO; -LISI10TA4 PO; -cefazolin/dext.iso 2gm/50ml 50 ML IV ONE; -famotidine 20mg tablet PO ONE; -ringers solution, lacted 1,000 ML IV SCH
[2021-02-26 10:46] VITALS: BP 125/82
[2021-02-26] MEDS ORDERED: MUPI22OI30 TOP (11:07)
[2021-02-26] MEDS ORDERED: SULF1TAB49 PO (11:07)
== END 2021-02-26 11:13 | disposition home or self-care (01) ==
LOC: ER 10:18
DX: J34.0 Abscess, furuncle and carbuncle of nose (principal); L03.211 Cellulitis of face; I10 Essential (primary) hypertension; F41.9 Anxiety disorder, unspecified; F32.9 Major depressive disorder, single episode, unspecified; Z79.899 Other long term (current) drug therapy
CPT/HCPCS: 99283

== ENCOUNTER 2021-06-18 10:15 | Emergency (ER) | payer MEDICARE, BC ==
[~2021-06-18] VITALS: Ht 165.1 cm; Wt 110.5 kg
--- NOTE | 2021-06-18 10:48 | NUR ---
PATIENT TESTED POSITIVE FOR COVID 2 WEEKS AGO AND IS HAVING CONTINUED COUGH AND CONGESTION WITH BODY ACHES AND WEAKNESS. O2 SAT 96% ON ROOM AIR. FREQUENT SPUTTERY COUGH NOTED.
[2021-06-18 11:09] LABS: BASOPHILS % (AUTO) 0.3 % (0-1); EOSINOPHILS % (AUTO) 0.3 % (0-6); HEMATOCRIT 42.9 % (42.0-52.0); HEMOGLOBIN 14.2 g/dl (14.0-17.9); LYMPHOCYTES # (AUTO) 0.7 X10'3 (1.1-4.8); LYMPHOCYTES % (AUTO) 7.7 % (21-51); MEAN CORPUSCULAR HEMOGLOBIN 27.8 PG (27.0-31.0); MEAN CORPUSCULAR HGB CONC 33.2 g/dL (33.0-36.5); MEAN PLATELET VOLUME 7.5 FL (7.4-10.4); MONOCYTES # (AUTO) 0.7 X10'3 (0-0.9); NEUTROPHILS # (AUTO) 7.4 X10'3 (1.8-7.7); NEUTROPHILS % (AUTO) 83.7 % (42-75); PLATELET COUNT 469 X10'3 (140-440); RED BLOOD COUNT 5.11 X10'6 (4.70-6.10); RED CELL DISTRIBUTION WIDTH 14.8 % (11.5-14.5); WHITE BLOOD COUNT 8.9 X10'3 (4.5-11.0)
[2021-06-18 11:26] LABS: D-DIMER 0.46 MG/L FEU (0-0.50)
[2021-06-18 11:41] LABS: ALANINE AMINOTRANSFERASE 41 U/L (12-78); ALBUMIN 2.8 G/DL (3.4-5.0); ALBUMIN/GLOBULIN RATIO 0.6 (1.1-1.5); ALKALINE PHOSPHATASE 166 IU/L (46-116); ANION GAP 12 (8-16); ASPARTATE AMINO TRANSFERASE 48 U/L (10-37); BILIRUBIN,TOTAL 0.6 MG/DL (0.1-1.0); BLOOD UREA NITROGEN 13 MG/DL (7-18); BUN/CREATININE RATIO 16.3 (5.4-32.0); C-REACTIVE PROTEIN 6.44 MG/DL (0.0-0.5); CALCIUM 9.2 MG/DL (8.5-10.1); CHLORIDE 102 MMOL/L (99-107); GLUCOSE 114 MG/DL (70-104); POTASSIUM 4.1 MMOL/L (3.5-5.1); SODIUM 140 MMOL/L (135-145); TOTAL CARBON DIOXIDE 26.4 MMOL/L (24-32); TOTAL PROTEIN 7.6 G/DL (6.4-8.2); eGFR > 90 ML/MIN
--- NOTE | 2021-06-18 12:00 | NUR ---
PATIENT BROUGHT IN ER TO BED #9 AND ASSISTED TO [facility].
[2021-06-18] MEDS ORDERED: normal saline 1000ML IV soln IVB ONE (12:10)
[2021-06-18] MEDS ORDERED: ipratropium/albuterol 3ml nebule NEB ONE (13:20)
[2021-06-18] MEDS ORDERED: DEXA6TAB PO (13:23)
[2021-06-18] MEDS ORDERED: ALBU18HF2 INH (13:23)
[2021-06-18] MEDS ORDERED: BENZ-38 PO (13:23)
--- NOTE | 2021-06-18 13:51 | NUR ---
PT'S GRANDSON, KRISHNA RAJAN, CONTACT# [phone]
--- NOTE | 2021-06-18 14:35 | NUR ---
Patient assisted with urinal at bedside.
[2021-06-18 15:30] VITALS: BP 164/95
== END 2021-06-18 15:36 | disposition home or self-care (01) ==
LOC: ER 10:16
DX: U07.1 COVID-19 (principal); R42 Dizziness and giddiness; R53.1 Weakness; R05.9 Cough, unspecified; R06.02 Shortness of breath; R19.7 Diarrhea, unspecified; I10 Essential (primary) hypertension; F41.9 Anxiety disorder, unspecified; F32.A Depression, unspecified; Z79.899 Other long term (current) drug therapy
CPT/HCPCS: 36415; 71045; 80053; 84145; 85025; 85379; 86140; 94640; 96360; 99284; J7030; 94760